=== PATIENT | female | born 1945 | race Caucasian/White ===

== ENCOUNTER → 2017-01-17 | Outpatient (CLI) | payer MEDICARE ==
[~2017-01-17] MED LIST: AMLODIPINE BESYL5 MG PO; ASPIRIN81 M1 PO; ATIVAN PO; CLARITIN10 MG PO; DARVOCET-N 1001 TAB PO; DIOVAN PO; HUMALOG100 U/ML SUBQ; LANTUS100 U/ML SUBQ; LIPITOR PO; METFORMIN PO; NASONEX17 GM; NEXIUM PO; PREVACID PO; TARKA 2/1801 BOTTLE PO
--- NOTE | ~2017-01-17 | MY11 ---
[facility] A Service of [facility] RADIOLOGY TEXT RESULTS PATIENT: RADHA GRANADOS LOCATION: [facility] : 49 UNIT #: [id number] AGE: [address]: Kevin Lopez MD SEX: F ORDER DR: [id number] [facility] [address] [place], [place] [address] [id number] O MR#: [id number] Acc #: [id number] NAME: RADHA GRANADOS : 1945 SEX: F STUDY DATE/TIME: 01/17/2017 13:49 UNIT: [facility] ROOM: STUDY DESCRIPTION: MY Mammogram Screening Dig [place] Attending Physician: Kevin Lopez M.D. Referring Physician: Kevin Lopez M.D. Ordering Physician: Kevin Lopez M.D. Primary Care Physician: Kevin Lopez M.D. MEDICAL IMAGING REPORT This report is preliminary unless electronic signature is present EXAM Digital screening mammogram with CAD. DATE OF EXAM 01/17/2017 INDICATION Routine screening. PROCEDURE Bilateral mL and MLO views obtained on digital mammography unit. FDA-approved CAD device utilized. COMPARISON STUDIES 01/12/2016 FINDINGS Scattered fibroglandular density. No dominant mass or suspicious calcification. IMPRESSION Negative screening mammogram. Screen interval in 1-year suggested. BIRADS B1-N, negative. Patients over the age of 40 are entered into a reminder system with target due date for the next mammogram. A result letter will also be sent to the patient. BIRADS: 1 Negative. [facility] A Service of [facility] RADIOLOGY TEXT RESULTS PATIENT: RADHA GRANADOS LOCATION: [facility] : 49 UNIT #: [id number] AGE: [address]: Kevin Lopez MD SEX: F ORDER DR: Dictated by... Zeke Henry M.D. THIS IS AN ELECTRONICALLY VERIFIED REPORT Zeke Henry M.D. at 01/18/2017 7:08 AM ALLI/mani TD: 01/17/2017 17:03 JOB #: [id number] MEDICAL IMAGING REPORT COPY
== END | disposition home or self-care (01) ==
LOC: CWCC 13:20
DX: Z12.31 Encounter for screening mammogram for malignant neoplasm of breast (principal)
CPT/HCPCS: G0202